=== PATIENT | female | born 2000 | race Caucasian/White ===

== ENCOUNTER 2019-09-29 08:44 | Emergency (ER) | payer SELFPAY ==
--- NOTE | 2019-09-29 08:50 | NUR ---
AND I WENT OUT TO WAITING ROOM HALLWAY WHERE PT AND FRINED WAS AT. PT WOULD NOT TALK ET FRIEND IS PUSHING PT INTO THE ER. PT ENDED UP WALKING INTO THE ER BUT WOULD NOT GO INTO THE ROOM ET WAS BEING PHYSICALLY PUSHED BY THE FRIEND TO ATTEMPT TO GET HER INTO ROOM 08. TOLD HER TO STOP AND BEGAN TO TALK TO PT IN THE HALLWAY OF THE ER. FRIEND UPSET ET STATES WE ARE DOING NOTHING FOR HER AND KNOWS HOW HOSPITALS ARE BECAUSE SHE IS FROM AND THIS HOSPITAL IS AWFUL. I ASKED THE FRIEND TO LEAVE WHICH SHE DID NOT. ARIANKRISTEL DID REPORT PT HAVING BIPOLAR AND A PSYCOTIC EPISOD. FRIEND CALLED PT'S MOM AND STEPPED AWAY FROM THE SITUATION AND DR ATTEMPTED TO TALK TO THE PT. WITHIN A MINUTE THE FRIEND CAME BACK AND TOOK THE PT AND SAYS SHE IS TAKING HER TO ANOTHER HOSPITAL. IMMEDIATELY CALLED POLICE WHEN THE TWO LEFT THE ER.
--- NOTE | 2019-09-29 09:17 | ED Psychosocial ---
General Stated Complaint: PSYCH Source: patient Exam Limitations: no limitations History of Present Illness Date Seen by Provider: Sep 29, 2019 Time Seen by Provider: 08:55 Initial Comments Patient resents to ER by private conveyance with significant other answering questions by nodding her head yes or no only but refusing to speak. She denies suicidality. Her friend reports she has suspected bipolar disorder and she is in a episode of psychosis. The patient nonverbal body language indicates the patient was trying to leave but is being held back by her friend. She refuses to go into a room. Attempted to engage her in conversation in the hallway while maintaining her privacy as best as possible and within about 1 minute the patient's friend became agitated and insisted that she would take the patient to another hospital. The friend says that she has not made any suicidal symptoms to her. Because of the brevity of the visit we are unable to obtain much history. The patient indicates she is a student at [employer] and moved here from somewhere in [place]. She does not have a primary care physician locally. Allergies and Home Medications Patient Home Medication List Home Medication List Reviewed: Yes Review of Systems Constitutional: see HPI (unable to obtain a meaningful review of systems.) Psychiatric/Neurological: Anxiety, Emotional Problems, Other (did not endorse suicidal or homicidal ideation. Does not endorse hallucinations audio or visual.) Physical Exam Capillary Refill : Height, Weight, BMI Height: '" Weight: lbs. oz. kg; BMI Method: General Appearance: WD/WN, no apparent distress HEENT: PERRL/EOMI Neck: full range of motion, normal inspection Respiratory: no respiratory distress, no accessory muscle use Cardiovascular: no edema Behavior/Eye Contact: good eye contact, refused to answer, uncooperative Thoughts/Hallucinations: paranoid Skin: normal color, warm/dry Progress/Results/Core Measures Results/Orders My Orders Orders - ROBERT NGUYEN Ekg Tracing (09/29/19 08:48) Urine Bedside (09/29/19 08:48) Progress Progress Note : Time: 09:24 Progress Note Patient was brought in against her will by a friend and refused to go into the room but agreed to blacking wheel tender the hallway which was vacated presently except for staff. Patient did appear to be trying to pull it away whenever her friend was around but when her friend stepped away for about 30 seconds to take a phone call the patient then visually relaxed. We were able to begin to engage with her verbally and she would answer by nodding her head yes or now and did indicate that she wanted to talk to us a lot and wanted help. She refused to answer yes or no when asked about suicidality. Shortly after we began to make some progress the patient's friend who brought her here became further agitated stating he was a mistake to bring her to the hospital and that she should've taken the patient to [place] to get appropriate psychiatric care. We're able to get a modicum of history from the patient's friend who spent most of her time on the phone loudly complaining about the situation. After the friend stepped away with her phone call for about 45 seconds were making some progress with the patient and then the friend decided that she was going to take the patient by the hand and drag her out the front door and announced that she would take her to another hospital. [place] [employer] were notified and given the description of the vehicle, car tag number and situation. Although the patient never endorse suicidality she was not able to prove that she was oriented to place time or situation. She did answer to her name and would not her head yes or no appropriately in answer to most questions. We have asked history please department to intervene and the welfare check. Departure Impression Primary Impression: Psychosis Qualified Codes: F29 - Unspecified psychosis not due to a substance or known physiological condition Disposition: 07 AGAINST MEDICAL ADVICE Condition: Against Medical Advice Departure-Patient Inst. Decision time for Depature: 09:01 Patient Instructions: Acute Psychosis (DC) Add. Discharge Instructions: Please present to the nearest ER for further help. ROBERT NGUYEN Sep 29, 2019 09:17
== END 2019-09-29 08:55 | disposition left against medical advice (07) ==
LOC: ER 08:46
DX: F29 Unspecified psychosis not due to a substance or known physiological condition (principal)

== ENCOUNTER → 2023-05-22 | Outpatient (CLI) | payer BC ==
--- NOTE | 2023-05-22 09:14 | Diagnostic Imaging Report ---
INDICATION: CHRONIC RIGHT SHOULDER PAIN COMPARISON: None. FINDINGS: 2 views of the right shoulder were obtained. There is no fracture, dislocation, or other acute bony abnormality identified. The soft tissues appear unremarkable. No radiopaque foreign body is identified. The visualized portions of the right lung are clear. IMPRESSION: No acute fractures or dislocations of the right shoulder. Dictated by: Dictated on workstation # [id number]
== END ==
LOC: RAD 08:10
PROVIDERS: ATTEND Physician Assistant
DX: M25.511 Pain in right shoulder (principal); G89.29 Other chronic pain
CPT/HCPCS: 73030